=== PATIENT | male | born 1995 | race Caucasian/White ===

== ENCOUNTER 2024-04-04 02:48 | Emergency (ER) | payer MEDICAID ==
[~2024-04-04] VITALS: Ht 170.2 cm; Wt 73.0 kg
[2024-04-04 02:50] VITALS: O2SAT 98
[2024-04-04] MEDS: MAGNESIUM/ALUMINUM HYDROXIDE/SIMETHICONE 30ML UDC PO ONE (03:30)
[2024-04-04] MEDS: SODIUM CHLORIDE 0.9% 1,000 ML IV ONE ×2 (03:30→05:00)
[2024-04-04 03:32] LABS: BASOPHILS % 0.4 % (0.0-2.0); EOSINOPHILS % 0.1 % (0.0-5.0); HEMOGLOBIN. 15.5 g/dL (14.0-18.0); LYMPHOCYTES % 18.3 % (20.0-50.0); MEAN CORPUSCULAR HEMOGLOBIN 31.5 pg (28.0-32.0); MEAN CORPUSCULAR HGB CONC 33.8 g/dL (31.0-37.0); MEAN CORPUSCULAR VOLUME 93.3 fL (80.0-94.0); MEAN PLATELET VOLUME 8.7 fl (7.4-10.4); MONOCYTES % 3.6 % (2.0-8.0); NEUTROPHILS % 77.6 % (40.0-76.0); PLATELET 316 x1000/uL (130-400); RED BLOOD CELL COUNT 4.93 mill/uL (4.7-6.1); WHITE BLOOD COUNT 10.1 x1000/uL (4.5-11.0)
[2024-04-04 03:35] LABS: CARBON DIOXIDE 20 mEq/L (21-32); CHLORIDE 107 mEq/L (98-107); POTASSIUM 3.5 mEq/L (3.5-5.1); SODIUM 141 mEq/L (136-145)
[2024-04-04 03:36] LABS: CALCIUM 9.8 mg/dL (8.7-10.4)
[2024-04-04 03:40] LABS: CREATININE 0.8 mg/dL (0.6-1.3)
[2024-04-04 03:41] LABS: ETHANOL BLOOD 107 mg/dL (<10); GLUCOSE 124 mg/dL (70-105); TROPONIN I HIGH SENSITIVITY 36 ng/L (3.0-53); UREA NITROGEN BLOOD 8 mg/dL (9-23)
[2024-04-04 04:09] LABS: D-DIMER 0.23 mg/L FEU (<0.50); INR 0.9; PARTIAL THROMBOPLASTIN TIME 25.1 sec (23.4-31.0); PROTHROMBIN TIME 10.2 sec (9.6-11.0)
[2024-04-04] MEDS ORDERED: ONDA4TAB50 MT (05:15)
[2024-04-04 05:59] LABS: TROPONIN I HIGH SENSITIVITY 29 ng/L (3.0-53)
[2024-04-04 06:26] VITALS: BP 131/92; PULSE 101; RESP 22; TEMP 98.2
== END 2024-04-04 06:29 | disposition home or self-care (01) ==
LOC: ER 03:06
DX: R07.9 Chest pain, unspecified (principal); F10.129 Alcohol abuse with intoxication, unspecified; R00.0 Tachycardia, unspecified
CPT/HCPCS: 80048; 80320; 83880; 83690; 85025; 85379; 85610; 85730; 84484; 36415; 71045; 93005; 96360; 96361; 99285; J7030; G0480

== ENCOUNTER 2024-05-07 07:19 | Emergency (ER) | payer MEDICAID ==
[~2024-05-07] VITALS: Ht 170.2 cm; Wt 82.0 kg
[~2024-05-07 07:19] MED LIST: ONDA4TAB50 MT
[2024-05-07 07:25] VITALS: BP 126/81; TEMP 99.3; O2SAT 98
[2024-05-07 07:41] VITALS: PULSE 92; RESP 18
== END 2024-05-07 08:33 | disposition home or self-care (01) ==
LOC: ER 07:36
DX: R07.9 Chest pain, unspecified (principal)
CPT/HCPCS: 71045; 93005; 99283

== ENCOUNTER 2025-07-30 17:27 | Emergency (ER) | payer MEDICAID ==
[~2025-07-30] VITALS: Ht 170.2 cm; Wt 76.0 kg
[2025-07-30 17:41] VITALS: TEMP 36.8; O2SAT 99
[2025-07-30 18:52] LABS: CLARITY URINE CLEAR (CLEAR); COLOR URINE YELLOW (YELLOW); GLUCOSE URINE NEGATIVE (NEGATIVE); KETONES URINE NEGATIVE (NEGATIVE); NITRITE URINE NEGATIVE (NEGATIVE); OCCULT BLOOD URINE NEGATIVE (NEGATIVE); PH URINE >=9.0 (4.5-8.0); PROTEIN URINE NEGATIVE (NEGATIVE); SPECIFIC GRAVITY URINE 1.020 (1.005-1.030)
[2025-07-30 18:53] LABS: LEUKOCYTE ESTERASE URINE NEGATIVE (NEGATIVE); UROBILINOGEN URINE 0.2 E.U./dL (0.2-1.0)
[2025-07-30 20:00] LABS: BASOPHILS % 0.5 % (0.0-2.0); EOSINOPHILS % 1.8 % (0.0-5.0); HEMATOCRIT. 41.4 % (42.0-52.0); HEMOGLOBIN. 13.9 g/dL (14.0-18.0); LYMPHOCYTES % 32.2 % (20.0-50.0); MEAN PLATELET VOLUME 8.4 fl (7.4-10.4); MONOCYTES % 7.7 % (2.0-8.0); NEUTROPHILS % 57.8 % (40.0-76.0); PLATELET 270 x1000/uL (130-400); RED BLOOD CELL COUNT 4.55 mill/uL (4.7-6.1); RED CELL DISTRIBUTION WIDTH 13.4 % (11.6-14.6)
[2025-07-30 20:11] LABS: CREATININE 0.8 mg/dL (0.6-1.3); UREA NITROGEN BLOOD 11 mg/dL (9-23)
[2025-07-30 20:12] LABS: TROPONIN I HIGH SENSITIVITY 44 ng/L (3.0-53)
[2025-07-30 20:13] LABS: ASPARTATE AMINOTRANSFERASE 16 IU/L (<34)
[2025-07-30 20:14] LABS: BILIRUBIN DIRECT < 0.1 mg/dL (<=3.0); BILIRUBIN TOTAL 0.4 mg/dL (0.1-1.0); PROTEIN TOTAL 7.2 g/dL (6.0-8.3)
[2025-07-30] MEDS: MECLIZINE 25MG TABLET PO ONE (22:05)
[2025-07-30 23:17] LABS: T4 FREE 1.45 ng/dL (0.89-1.76)
[2025-07-30 23:29] LABS: TROPONIN I HIGH SENSITIVITY 40 ng/L (3.0-53)
[2025-07-31 00:24] VITALS: BP 126/83; PULSE 88; RESP 18; O2SAT 100
== END 2025-07-31 00:24 | disposition home or self-care (01) ==
LOC: ER 17:27
DX: R07.89 Other chest pain (principal); R00.2 Palpitations; R42 Dizziness and giddiness
CPT/HCPCS: 80076; 80048; 81003; 80320; 84439; 83690; 84443; 85025; 85379; 84484; 36415; 71045; 70450; 93005; 99285; J8597; G0480